=== PATIENT | male | born 1970 | race American Indian/Alaskan Native ===

== ENCOUNTER 2020-11-26 08:33 | Outpatient (CLI) | payer OTHER ==
[2020-11-26 09:36] LABS: Blood Urea Nitrogen 11 mg/dL (9-20)
--- NOTE | 2020-11-26 11:30 | Cat Scan Report ---
CTA CHEST WITH CONTRAST INDICATION : POSSIBLE PE OMNI 350 100 ML. Embolism and thrombosis of arteries of extremities TECHNIQUE: Axial imaging performed through the chest, with contrast bolus timing set to maximize opa cification of the pulmonary arteries. Sagittal and coronal reformatted images. 3-plane MIP reformatte d images were obtained. All CT scans at this location are performed using CT dose reduction for ALAR A by means of automated exposure control. 100 mL of intravenous contrast administered. COMPARISON: None FINDINGS: Bolus: Contrast bolus timing is adequate. PTE: No filling defect is present to suggest PTE. Aorta: No significant abnormality. Mediastinum: Heart and great vessels appear normal. No pathologic mediastinal adenopathy. Lungs: Mild centrilobular emphysematous changes are noted. Mild hypoventilatory changes in the subpl eural regions of both lower lobes. No acute infiltrate, pleural effusion or pneumothorax. Bones: Degenerative changes in the spine with nothing acute. IMPRESSION: No pulmonary embolus is identified. Normal appearance of the thoracic aorta. Mild emphysematous changes. CTA ABDOMEN AND PELVIS WITH IV CONTRAST INDICATION / CLINICAL INFORMATION: POSSIBLE PE OMNI 350 100 ML. TECHNIQUE: Axial CT images were obtained through the abdomen and pelvis after injection of 100 cc IV contrast. 3 plane MIP / 3D reconstructions were produced. All CT scans at this location are performed using CT d ose reduction for ALARA by means of automated exposure control. COMPARISON: None available. FINDINGS: Comment: Please note this exam was performed after CTA of the chest pulmonary embolus protocol. Acqui sition of the images was slightly delayed. There is however adequate opacification of the arterial st ructures. Aorta: There are mild scattered partially calcified plaques. No stenosis, dissection or aneurysm. Renal arteries: No significant abnormality. Celiac artery: No significant abnormality. Superior Mesenteric Artery: No significant abnormality. Inferior mesenteric artery: No significant abnormality. Right Iliac Arteries: No significant abnormality.. Left Iliac Arteries: No significant abnormality.. Additional Findings: Scattered bilateral renal cysts are identified with the largest measuring 5.3 cm in the interpolar region of the left kidney. There is mild sigmoid diverticulosis. The prostate glan d is markedly enlarged measuring 7 cm in diameter. The remaining abdominal viscera are unremarkable. No suspicious bony lesions are detected. Skeletal Structures: No significant abnormality. IMPRESSION: Mild atherosclerotic disease in the abdominal aorta. Otherwise unremarkable CTA of the abdomen and pe lvis. Bilateral renal cysts. Diverticulosis of the distal colon. Marketed enlargement of the prostate gland. Consider correlation with PSA levels. Signer Name: Jack Valdes Jr, MD Signed: 11/26/2020 11:25 AM Workstation Name: [id number]
== END 2020-11-26 08:34 | disposition home or self-care (01) ==
LOC: CT 08:33
PROVIDERS: ATTEND Radiology Diagnostic Radiology
DX: J43.9 Emphysema, unspecified (principal); K57.30 Diverticulosis of large intestine without perforation or abscess without bleeding; N28.1 Cyst of kidney, acquired; I70.0 Atherosclerosis of aorta; I70.213 Atherosclerosis of native arteries of extremities with intermittent claudication, bilateral legs; I74.4 Embolism and thrombosis of arteries of extremities, unspecified; N40.0 Benign prostatic hyperplasia without lower urinary tract symptoms
CPT/HCPCS: 36415; 71275; 74174; 82565; 84520; Q9967